=== PATIENT | female | born 1975 | race Caucasian/White ===

== ENCOUNTER 2017-05-21 03:31 | Day surgery (SDC) | payer MEDICAID ==
[2017-05-21] VITALS (8 sets, daily range): BP systolic 132–160; BP diastolic 85–104
[~2017-05-21] VITALS: Ht 170.2 cm; Wt 85.0 kg
--- NOTE | ~2017-05-21 | OP ---
PATIENT NAME: CHRISTIAN SWIFT MEDICAL RECORD: [id number] :77 LOCATION:D.[id number] ADMISSION DATE:05/21/17 SURGEON: BRITTANY STOVALL MD DATE OF OPERATION: 05/21/2017 PREOPERATIVE DIAGNOSES: Acute cholecystitis, human immunodeficiency virus positive. POSTOPERATIVE DIAGNOSES: Acute cholecystitis with right upper quadrant abdominal adhesions and severe chronic cholecystitis. Human immunodeficiency virus positive, hepatomegaly. SURGEON: Brittany Stovall MD. BLOW DOWN HELPER: None. BLOOD LOSS: 200 cc. ANESTHESIA: General. COMPLICATIONS: None. The risks, possible complications and alternatives to the procedure were explained to the patient. She elects to proceed. OPERATIVE COURSE: The patient was conveyed to the operating room electively on 05/21/2017. General anesthesia was induced by the anesthesia staff. The abdomen was sterilely prepped and draped. An incision was accomplished within the umbilicus. Sharp dissection was carried down to the level of the periumbilical fascia. Stay sutures were placed on either side of the fascia. The fascia was entered in the midline. A 12-mm trocar was placed. CO2 insufflation was begun. Once a sufficient pneumoperitoneum had been achieved, a 5-mm trocar was inserted through an incision in the right upper quadrant. A Svat-Uxjv-Apkogh type adhesions were noted over the convexity of the liver in the right upper quadrant. These were taken down with the hook cautery. There were some omental adhesions as well that were taken down with the hook cautery. Two more trocars were inserted. These were 5-mm trocars. One was inserted far laterally in the right upper quadrant. Another one was inserted between the 2 other 5-mm trocars. During insertion of the trocars, there was no apparent injury to the bowels, any intraperitoneal or retroperitoneal structures. The indication for liver biopsy was hepatomegaly. Under laparoscopic guidance, I percutaneously accessed the right upper quadrant utilizing an 18-gauge core needle liver biopsy device. Cores were obtained over the convexity of the liver. The biopsy sites were made hemostatic with electrocautery. I then advanced the cholangiogram trocar. I punctured the fundus of the gallbladder. I aspirated bile. I injected dye. Real-time cholangiographic images were obtained and these were sent to the radiologist for interpretation. The radiologist called back and stated that the common bile duct was enlarged and tapered and recommended an MRCP sometime in the future. I began the gallbladder dissection which was very difficult. There was a lot of OPERATIVE REPORT [id number] CHRISTIAN SWIFT scarring in the triangle of [place]ot. I performed a dome-down dissection. Dr. Watson was asked to come and evaluate the images on the screen and to provide me with some advice and he was very helpful in providing some advice with regards to managing this difficult situation. We could identify the common hepatic duct as well as common bile duct. There were 2 ductal structures that appeared to be entering the gallbladder. I was able to dissect these out and one of these was the artery. It was clipped multiple and then divided distal to the clips and there was some back bleeding, so this confirmed that this was the artery. The cystic duct was very short and very thick. For this reason, the epigastric 5-mm trocar was changed out for a 12-mm trocar. I advanced an Endo-MONSE type stapler and stapled across the infundibulum of the gallbladder where it joined the cystic duct. Two firings were necessary. The gallbladder was placed within a bag retrieval device and was withdrawn through the umbilical fascia defect. The 12-mm trocar was re-placed and the abdomen reinsufflated. There was no bleeding even at low pressure of 8. Lissa was added to the gallbladder fossa for additional hemostasis. All trocars were removed and the abdomen desufflated. The fascia at the umbilicus was closed with horizontal mattress 0 Vicryl sutures. The skin at the umbilicus was closed with interrupted 4-0 Vicryl Rapide sutures. The other skin incisions were closed with interrupted intracuticular 3-0 Vicryls. Benzoin and Steri-Strips were applied. The patient was then extubated and conveyed to post-anesthesia care unit where she was in stable condition. She will be placed in an observation bed overnight and I will plan to dismiss her home tomorrow. TRANSINT:[id number] Voice Confirmation ID: [id number] DOCUMENT ID: [id number] CC: Swati Simon APN, [employer]. BRITTANY STOVALL MD CC: SYLVESTER GOLDBERG [id number] DICTATION DATE: 05/21/171558 END MATCHER: 05/21/[id number] ADM IN [facility] [address] [id number]
--- NOTE | ~2017-05-21 | HP ---
PATIENT: CHRISTIAN SWIFT MEDICAL RECORD: [id number] ACCOUNT: [id number] LOCATION:D.[facility] : 77 ADMISSION DATE: 05/21/17 HISTORY AND PHYSICAL EXAMINATION CHIEF COMPLAINT: Pain. HISTORY OF PRESENT ILLNESS: The patient has had symptoms for several months. It is epigastric pain, which radiates into the right upper quadrant as well as right back. It is worse after eating greasy or fatty foods. She presented to the Emergency Room with right upper quadrant pain 2 hours after eating at [employer]. Symptoms are intermittent. They are of moderate intensity. She has had similar complaints in the past. Palpation aggravates. Nothing alleviates. REVIEW OF SYSTEMS: No fever. Positive for nausea and vomiting. No fatigue. No ear pain. No nasal drainage. No dyspnea on exertion, no shortness of breath, no syncope. No flank pain. Positive for back pain. No confusion. No vertigo. Positive for anxiety. Positive for multiple tattoos. PAST MEDICAL AND SURGICAL HISTORY: HIV, she is on medication. MEDICATIONS: She is on acyclovir, Bactrim-DS, dicyclomine, as well as HIV medications. ALLERGIES: No known drug allergies. PHYSICAL EXAMINATION: GENERAL: The patient does not appear acutely ill. She does not appear chronically ill. The entire physical examination was performed in the presence of a female nurse. VITAL SIGNS: Reviewed. HEAD: External ears appear normal. EYES: Extraocular movements are intact. NECK: Trachea is midline. CHEST: No intercostal retractions. PULMONARY: Nonlabored, no stridor. ABDOMEN: Right upper quadrant tenderness with guarding. There is no peritonitis to percussion. EXTREMITIES: No peripheral cyanosis. INTEGUMENT: No rash, no ulcerations. Multiple tattoos. LYMPHATICS: No lymphangitic streaking of the exposed extremities. BACK: No thoracic kyphosis. IMAGING: X-rays: I have personally reviewed the CT images. I personally reviewed the CT report. It is consistent with a 2.2-cm stone in the neck of the gallbladder with gallbladder wall thickening and pericholecystic fluid. IMPRESSION: 1. Acute cholecystitis. 2. Human immunodeficiency virus. PLAN: Laparoscopic cholecystectomy, intraoperative cholangiography, possible liver biopsy. The risks, possible complications and alternatives to procedure were explained to the patient. She elects to proceed. The discussion specifically included, but was not limited to, bleeding requiring emergency HISTORY AND PHYSICAL [id number] CHRISTIAN SWIFT reoperation, infection, common ductal injury and open procedure. TRANSINT:[id number] Voice Confirmation ID: [id number] DOCUMENT ID: [id number] CC: Swati Quevedo APN, [employer]. BRITTANY STOVALL MD CC: [id number] DICTATION DATE: 05/21/17 1047 GARAGE WORKER: 05/21/17 1150 ADM IN [address] [id number] [place] [address]
[2017-05-21 04:34] LABS: BASOPHILS 0.1 % (0-2); EOSINOPHILS 2.1 % (0-7); HEMATOCRIT 38.7 % (36.0-48.0); HEMOGLOBIN 12.5 g/dL (12-16); IMMATURE GRANULOCYTES 0.3 % (0-5); LYMPHOCYTES 21.9 % (15-50); MCH 30.3 pg (26.0-34.0); MCHC 32.3 g/dL (31.0-37.0); MCV 93.7 fL (80.0-100.0); MEAN PLATELET VOLUME 9.9 fL (7.4-10.4); MONOCYTES 5.7 % (2-11); NEUTROPHILS 69.9 % (40-80); PLATELET COUNT 257 10x3/uL (130-400); RBC 4.13 10x6/uL (4.00-5.40); RDW 14.4 % (11.5-14.5); WBC 7.1 10x3/uL (4.8-10.8)
[2017-05-21 04:50] LABS: ALBUMIN 3.5 g/dL (3.4-5.0); ALKALINE PHOSPHATASE 81 U/L (46-116); ALT (SGPT) 21 U/L (10-68); CALC OSMOLALITY 279 mosm/kg (275-300); CALCIUM 8.9 mg/dL (8.5-10.1); CARBON DIOXIDE 27.3 mmol/L (21.0-32.0); CHLORIDE - SERUM 105 mmol/L (98-107); CREATININE - SERUM 0.9 mg/dL (0.6-1.3); GLUCOSE 103 mg/dL (74-106); POTASSIUM - SERUM 3.6 mmol/L (3.5-5.1); PROTEIN - SERUM 7.6 g/dL (6.4-8.2); SODIUM 140 mmol/L (136-145); UREA NITROGEN 14 mg/dL (7-18); eGFR NON AFRICAN AMERICAN 73 mL/min (90-120)
[2017-05-21 04:53] LABS: AMYLASE - SERUM 87 U/L (25-115); CREATINE KINASE 95 UL (21-215); LIPASE 247 U/L (73-393); TROPONIN-I < 0.017 ng/mL (0.000-0.060)
[2017-05-21 06:12] LABS: APPEARANCE CLEAR (CLEAR); BILIRUBIN NEGATIVE (NEGATIVE); COLOR YELLOW (YELLOW); GLUCOSE NEGATIVE (NEGATIVE); KETONE SMALL mg/dL (NEGATIVE); LEUKOCYTE ESTERASE NEGATIVE (NEGATIVE); NITRITE NEGATIVE (NEGATIVE); PROTEIN NEGATIVE (NEGATIVE); SPECIFIC GRAVITY 1.015 (1.005-1.020); UROBILINOGEN NORMAL (NORMAL)
[2017-05-21] MEDS ORDERED: VIBRAMYCIN50 MG PO (07:32)
[2017-05-21] MEDS ORDERED: BACTRIM 400-801 TAB PO (07:32)
[2017-05-21] MEDS ORDERED: BUPROPION HCL100 MG PO (07:33)
--- NOTE | 2017-05-21 07:52 | NUR ---
PT REC'D TO ROOM VIA WC. ACCOMAPNIED BY HOSPITAL STAFF. AAOX4. NO COMPLAINTS OF PAIN CURRENTLY. PIV TO R AC FREE OF REDNESS AND SWELLING. REGULAR HEART RATE AND RHYTHM. LUNG SOUNDS CLEAR AND EQUAL BILAT. BOWEL SOUNDS HYPOACTIVE X4 QUADRANTS. SKIN CDI. BED LOW, CALL LIGHT IN REACH, DENIES NEEDS. CPOC.
[2017-05-21] MEDS ORDERED: EPZICOM TABLET1 TAB PO (09:32)
[2017-05-21] MEDS ORDERED: REMERON15 MG PO (09:34)
[2017-05-21] MEDS ORDERED: ZOVIRAX400 MG PO (09:35)
--- NOTE | 2017-05-21 09:39 | NUR ---
DR. STOVALL PAGED TO OBTAIN ORDERS FOR PAIN MEDICATION. NEW ORDERS REC'D AT THIS TIME.
--- NOTE | 2017-05-21 09:57 | NUR ---
SURGERY CALLED BACK TO SAY THAT NO PREOP ORDERS WERE AVAILABLE.
--- NOTE | 2017-05-21 09:59 | NUR ---
DILAUDID COMMISSION BROKER SET UP AT THIS TIME. EXPLAINED HOW TO USE IT. NO QUESTIONS OR CONCERNS VOICED AT THIS TIME. RATING CURRENT PAIN IN ABD 05/10. WILL REASSESS. CONSENTS GONE OVER AND SIGNED AT THIS TIME.
--- NOTE | 2017-05-21 10:19 | NUR ---
PREOP'D AND READY FOR SURGERY.
--- NOTE | 2017-05-21 15:44 | NUR ---
REPORT REC'D FROM RECOVERY NURSE.
--- NOTE | 2017-05-21 15:50 | NUR ---
PT REC'D BACK FROM SURGERY. AAOX4. DROWSY, BUT EASILY AROUSED. PIV TO R AC FREE OF REDNESS AND SWELLING. RECONNECTED BACK TO MEDICATION CARE MANAGER PUMP. RATING CURRENT PAIN IN ABD 05/10. REMINDED PT ON HOW TO USE MEDICATION CARE MANAGER DEVICE. X4 LAP SITES TO ABD WITH STERI-STRIPS CDI. BOYFRIEND AT BEDSIDE. BED LOW, CALL LIGHT IN REACH, DENIES NEEDS. CPOC.
--- NOTE | 2017-05-21 18:01 | NUR ---
DENIES NEEDS AT PRESENT. BED LOW CL IN REACH.
--- NOTE | 2017-05-21 20:00 | NUR ---
PT IS RESTING IN BED WITH EYES OPEN. ALERT AND ORIENTED X 3. DENIES ACUTE DISCOMFORT AT THIS TIME. STATES HER MIXER OPERATOR HOT METAL DILAUDID IS CONTRAOLLING HER PAIN. 4 INCISIONS TO ABD ARE CDI. NO DRAINAGE NOTED. IV IS INFUSING TO RIGHT AC. NO REDNESS OR EDEMA NOTED @ THE INSERTION SITE. SR'S ARE UP X 2 IN BED. CALL LIGHT AND BEDSIDE TABLE ARE WITHIN EASY REACH.
--- NOTE | 2017-05-21 21:30 | NUR ---
PT IS RESTING IN BED WATCHING TV. NO ACUTE DISTRESS NOTED.
--- NOTE | 2017-05-21 23:21 | NUR ---
RESTING IN BED WITH EYES CLOSED.
--- NOTE | 2017-05-22 00:38 | NUR ---
PT IS RESTING QUIETLY IN BED WITH EYES CLOSED.
--- NOTE | 2017-05-22 01:51 | NUR ---
RN NOTE: PT LYING IN SEMI FRIEND'S POSITION WATCHING TV. IV IN RIGHT AC PATENT WITH NS INFUSING AT 100 ML / HR. CENTRIFUGAL EXTRACTOR OPERATOR IN USE FOR PAIN CONTROL, AND PT STATES PAIN WELL CONTROLLED AT THIS TIME. SCD'S IN USE ON BLE. WILL CONTINUE TO MONITOR FOR NEEDS. CALL LIGHT WITHIN REACH.
[2017-05-22 04:00] VITALS: BP 161/94
--- NOTE | 2017-05-22 04:00 | NUR ---
PT IS RESTING IN BED WATCHING TV. VISITOR AT BEDSIDE.
--- NOTE | 2017-05-22 06:01 | NUR ---
PT IS RESTING QUIETLY IN BED WITH EYES CLOSED. NO ACUTE DISTRESS NOTED.
--- NOTE | 2017-05-22 06:37 | NUR ---
PT STUCK 3 TIMES BY LAB UNSUCCESSFULLY. PT NOW REFUSING TO BE RE STUCK.
--- NOTE | 2017-05-22 08:00 | NUR ---
AWAKE AND ALERT. ORIENTED X3. NO C/O AT THIS TIME. LUNGS ARE CLEAR BILATERALLY, NO COUGH NOTED. SKIN IS INTACT WITHOUT REDNESS EXCEPT 4 SMALL INSERTION SITES TO ABDOMEN WITHOUT SIGNS OF INFECTION. IV TO RIGHT AC IS PATENT WITHOUT REDNESS AT INSERTION SITE. ENCOURAGED TO BE UP OOB AND AMBULATING IF SHE WANTS TO GO HOME. NO FLATUS OF YET. SCD'S IN PLACE. DENIES NEEDS.
[2017-05-22 08:42] VITALS: BP 138/79
--- NOTE | 2017-05-22 11:16 | NUR ---
UP AMBULATED IN HALLWAY PER SELF. REPORTS PAIN IMPROVED WITH ACTIVITY.
[2017-05-22 12:01] VITALS: BP 136/94
--- NOTE | 2017-05-22 12:15 | NUR ---
LUNCH SERVED IN ROOM. DENIES NEEDS AT THIS TIME.
[2017-05-22 13:53] LABS: ALBUMIN 2.9 g/dL (3.4-5.0); ALKALINE PHOSPHATASE 91 U/L (46-116); BASOPHILS 0.2 % (0-2); BILIRUBIN - TOTAL 0.43 mg/dL (0.2-1.3); CALCIUM 8.3 mg/dL (8.5-10.1); CHLORIDE - SERUM 104 mmol/L (98-107); CREATININE - SERUM 0.7 mg/dL (0.6-1.3); EOSINOPHILS 0.3 % (0-7); GLUCOSE 124 mg/dL (74-106); HEMATOCRIT 38.3 % (36.0-48.0); IMMATURE GRANULOCYTES 0.2 % (0-5); LYMPHOCYTES 16.4 % (15-50); MAGNESIUM - SERUM 1.4 mg/dL (1.8-2.4); MCH 30.3 pg (26.0-34.0); MCHC 31.3 g/dL (31.0-37.0); MEAN PLATELET VOLUME 10.3 fL (7.4-10.4); MONOCYTES 8.7 % (2-11); NEUTROPHILS 74.2 % (40-80); PHOSPHOROUS 3.3 mg/dL (2.5-4.9); PLATELET COUNT 223 10x3/uL (130-400); POTASSIUM - SERUM 3.7 mmol/L (3.5-5.1); PROTEIN - SERUM 6.2 g/dL (6.4-8.2); RBC 3.96 10x6/uL (4.00-5.40); RDW 14.7 % (11.5-14.5); SODIUM 137 mmol/L (136-145); eGFR NON AFRICAN AMERICAN > 90 mL/min (90-120)
[2017-05-22 13:55] LABS: ALT (SGPT) 81 U/L (10-68); CALC OSMOLALITY 273 mosm/kg (275-300); UREA NITROGEN 10 mg/dL (7-18)
[2017-05-22 13:56] LABS: MCV 96.7 fL (80.0-100.0); WBC 10.6 10x3/uL (4.8-10.8)
--- NOTE | 2017-05-22 14:00 | NUR ---
ATE ONLY A SMALL PORTION OF LUNCH. REFUSED OFFER OF ALTERNATIVE FOOD. DENIES NEEDS.
[2017-05-22] MEDS ORDERED: HYDROCODONE-APA1 TAB PO (14:09)
[2017-05-22 14:37] VITALS: Ht 170.2 cm; Wt 85.0 kg
--- NOTE | 2017-05-22 15:05 | NUR ---
DISCHARGED TO HOME AMBULATORY WITH FAMILY. DISCHARGE INSTRUCTIONS GIVEN BOTH VERBALLY AND WRITTEN. ALL QUESTIONS ANSWERED. PATIENT VERBALIZED UNDERSTANDING OF SAME. NEEDED PRESCRIPTIONS GIVEN TO PATIENT. IV TO RIGHT AC D/C WITH CATHETER INTACT.
== END 2017-05-22 15:05 | disposition home or self-care (01) ==
LOC: D.ER 03:31 → D.OPS 03:31 → D.MS 06:37 → D.ER 06:37 → EDSTATUS 13:15 → D.OPS 05-22 15:05 → D.MS 05-22 15:05
PROVIDERS: Family Medicine; Surgery
DX: K80.12 Calculus of gallbladder with acute and chronic cholecystitis without obstruction (principal); B20 Human immunodeficiency virus [HIV] disease; R16.0 Hepatomegaly, not elsewhere classified; Z01.812 Encounter for preprocedural laboratory examination; M54.9 Dorsalgia, unspecified; F41.9 Anxiety disorder, unspecified; Z79.2 Long term (current) use of antibiotics; Z79.899 Other long term (current) drug therapy